=== PATIENT | male | born 1955 | race Caucasian/White ===

== ENCOUNTER 2017-10-10 07:50 | Day surgery (SDC) | payer OTHER ==
[2017-10-07 11:16] VITALS: BMI 25.0
[~2017-10-10 07:50] MED LIST: LACTATED RINGERS 1,000 ML IV SCH
[2017-10-10 08:11] VITALS: TEMP 98.4
[2017-10-10] MEDS ORDERED: LIDOCAINE 1% 20 ML VIAL (10MG/ML) FOR IV START INTRADERMA ONE (08:17)
[2017-10-10] MEDS ORDERED: LIDOCAINE 1% INJ 10MG/ML (20 ML MDV) ONE (08:29)
[2017-10-10] MEDS ORDERED: PROPOFOL 10 MG/ML 20 ML VIAL IV ONE (08:29)
--- NOTE | 2017-10-10 08:30 | P.GSHP ---
History of Present Illness H&P Date: 10/10/17 Chief Complaint: Colon cancer screening Patient here today for colonoscopy. He has not had been previously. No bowel related complaints. No family history of colon cancer. Past Medical History Past Medical History: No Reported History History of Any Multi-Drug Resistant Organisms: None Reported Past Surgical History: No Surgical Hx Reported Past Anesthesia/Blood Transfusion Reactions: No Reported Reaction Additional Past Anesthesia/Blood Transfusion Reaction / Comment(s): no anesthesia hx Smoking Status: Never smoker - Past Family History Mother Family Medical History: No Reported History Medications and Allergies Home Medications Medication Instructions Recorded Confirmed Type No Known Home Medications [No 10/07/17 10/07/17 History Known Home Medications] Allergies Allergy/AdvReac Type Severity Reaction Status Date / Time No Known Allergies Allergy Verified 10/07/17 11:13 Surgical - Exam Vital Signs Temp Pulse Resp BP Pulse Ox 98.4 F 89 16 161/85 98 10/10/17 08:09 10/10/17 08:09 10/10/17 08:09 10/10/17 08:09 10/10/17 08:09 Physical exam: General: Well-developed, well-nourished HEENT: Normocephalic, sclerae nonicteric Abdomen: Nontender, nondistended Extremities: No edema Neuro: Alert and oriented Assessment and Plan (1) Colon cancer screening Narrative/Plan: Will proceed with colonoscopy at this time. Current Visit: Yes Status: Acute Code(s): Z12.11 - ENCOUNTER FOR SCREENING FOR MALIGNANT NEOPLASM OF COLON SNOMED Code(s): 925467294
--- NOTE | 2017-10-10 09:21 | P.PCN ---
Date of Procedure: 10/10/17 Procedure(s) Performed: PREOPERATIVE DIAGNOSIS: Colon cancer screening POSTOPERATIVE DIAGNOSIS: Ascending colon polyp 2, sigmoid colon polyp, diverticulosis PROCEDURE: Colonoscopy with snare polypectomy ANESTHESIA: MAC SURGEON: Saw Mast M.D. SPECIMENS: Polyps ENDOSCOPIC PROCEDURE: The patient was placed on the endoscopy table in the left decubitus position. The Olympus colonoscope was inserted into the anus and passed under direct visualization to the base of the cecum. The appendiceal orifice was visualized. From that point the scope was slowly withdrawn inspecting all surfaces carefully. There were no neoplastic inflammatory or polypoid lesions throughout the cecum. In the ascending colon 2 polyps were seen and removed using the snare with cautery technique. The transverse and descending colon appeared normal. In the sigmoid colon a small polyp was seen and removed using the snare with cautery technique. The remainder of the sigmoid and rectum were normal. He was mild diverticulosis present in the sigmoid colon. Digital rectal examination was normal. The patient was taken to the recovery room in stable condition per anesthesia guidelines. RECOMMENDATIONS: Await biopsy results. Anticipate follow-up colonoscopy 5 years.
[2017-10-10 09:22] VITALS: BP 139/82; PULSE 68; RESP 18
== END 2017-10-10 09:40 | disposition home or self-care (01) ==
LOC: ORWHC2ENDO 07:50
PROVIDERS: ATTEND Surgery
DX: Z12.11 Encounter for screening for malignant neoplasm of colon (principal); D12.2 Benign neoplasm of ascending colon; K57.30 Diverticulosis of large intestine without perforation or abscess without bleeding
CPT/HCPCS: 88305; 45385; J2001; J2704

== ENCOUNTER 2023-03-25 11:13 | Day surgery (SDC) | payer MEDICARE, OTHER ==
[~2023-03-25 11:13] MED LIST changes: +LIDOCAINE 1% (10MG/ML) FOR IV START INTRADERMA PRN
[2023-03-25 12:32] VITALS: RESP 16; TEMP 97.5
[2023-03-25] MEDS ORDERED: IV FLUID CONTINUATION 900 ML IV ONE (13:11)
[2023-03-25] MEDS ORDERED: PROPOFOL 10 MG/ML 20 ML VIAL IV ONE (13:13)
--- NOTE | 2023-03-25 13:18 | P.GSHP ---
History of Present Illness H&P Date: 03/25/23 Chief Complaint: Screening with history of polyps 67-year-old male here for colonoscopy. Last colonoscopy 5 years ago. 3 adenomatous polyps were seen. No bowel complaints. No family history of colon cancer. Past Medical History Past Medical History: No Reported History History of Any Multi-Drug Resistant Organisms: None Reported Past Surgical History: No Surgical Hx Reported Past Anesthesia/Blood Transfusion Reactions: No Reported Reaction Additional Past Anesthesia/Blood Transfusion Reaction / Comment(s): no anesthesia hx Smoking Status: Never smoker - Past Family History Mother Family Medical History: No Reported History Medications and Allergies Home Medications Medication Instructions Recorded Confirmed Type No Known Home Medications 10/07/17 03/18/23 History Allergies Allergy/AdvReac Type Severity Reaction Status Date / Time No Known Allergies Allergy Verified 03/25/23 12:32 Surgical - Exam Vital Signs Temp Pulse Resp BP Pulse Ox 97.5 F L 80 16 162/83 97 03/25/23 12:18 03/25/23 12:18 03/25/23 12:18 03/25/23 12:18 03/25/23 12:18 Physical exam: General: Well-developed, well-nourished HEENT: Normocephalic, sclerae nonicteric Abdomen: Nontender, nondistended Extremities: No edema Neuro: Alert and oriented Assessment and Plan (1) Colon cancer screening Narrative/Plan: Will proceed with colonoscopy Current Visit: No Status: Acute Code(s): Z12.11 - ENCOUNTER FOR SCREENING FOR MALIGNANT NEOPLASM OF COLON SNOMED Code(s): 220836346
--- NOTE | 2023-03-25 13:30 | P.PCN ---
Date of Procedure: 03/25/23 Procedure(s) Performed: PREOPERATIVE DIAGNOSIS: Screening with history of polyps POSTOPERATIVE DIAGNOSIS: Diverticulosis PROCEDURE: Colonoscopy ANESTHESIA: MAC SURGEON: Saw Mast M.D. SPECIMENS: None ENDOSCOPIC PROCEDURE: The patient was placed on the endoscopy table in the left decubitus position. The Olympus colonoscope was inserted into the anus and passed under direct visualization to the base of the cecum. The appendiceal orifice was visualized. From that point the scope was slowly withdrawn inspecting all surfaces carefully. There were no neoplastic inflammatory or polypoid lesions throughout the cecum, ascending, transverse, descending, sigmoid and rectum. There was mild left-sided diverticulosis noted. Digital rectal examination was normal. The patient was taken to the recovery room in stable condition per anesthesia guidelines. RECOMMENDATIONS: Resume diet. Repeat colonoscopy in 5-7 years. Disposition: other
[2023-03-25 13:59] VITALS: BP 125/66; PULSE 60
== END 2023-03-25 14:13 | disposition home or self-care (01) ==
LOC: ORWHC2ENDO 11:13
PROVIDERS: ATTEND Surgery
DX: Z12.11 Encounter for screening for malignant neoplasm of colon (principal); K63.5 Polyp of colon; K57.30 Diverticulosis of large intestine without perforation or abscess without bleeding; Z86.010 Personal history of colon polyps
CPT/HCPCS: G0105; J2704; 45378

== ENCOUNTER → 2023-12-25 | Outpatient (CLI) | payer MEDICARE ==
--- NOTE | 2023-12-25 12:30 | CT ---
EXAMINATION TYPE: CT abdomen pelvis wo con DATE OF EXAM: 12/25/2023 HISTORY: Intra abdominal/pelvic swelling, mass, possible hernia. CT DLP: 918 mGycm. Automated Exposure Control for Dose Reduction was Utilized. TECHNIQUE: CT scan of the abdomen and pelvis is performed without oral or IV contrast. COMPARISON: None FINDINGS: There is an ill-defined 6.5 mm nodule in the left lung base posteriorly. There are questionable nodul es in the lingula as well. CT of the chest is recommended for further evaluation of the lung parenchy ma in its entirety. The gallbladder is normal. No gallstones or distention or biliary ductal dilatation. There is no organomegaly involving the liver, pancreas, spleen and adrenal glands. There is no renal calcification or hydronephrosis. Caliber of the abdominal aorta is normal. There is no retroperitoneal adenopathy. The bowel loops are normal in caliber and no dilatation or obstruction. No inflammatory changes are i dentified in the bowel and mesentery and there is no free intraperitoneal air or fluid. There is a right inguinal hernia containing bowel loops which do not appear dilated or strangulated. There is no pelvic adenopathy or abscess. The osseous structures are intact. IMPRESSION: 1. Left lung nodules as described above. CT chest is recommended to evaluate the lung parenchyma in i ts entirety. 2. Right inguinal hernia containing non strangulated small bowel loops.
== END | disposition home or self-care (01) ==
LOC: RADCTMAIN 10:32
PROVIDERS: ATTEND Family Medicine
DX: K40.90 Unilateral inguinal hernia, without obstruction or gangrene, not specified as recurrent (principal); R19.00 Intra-abdominal and pelvic swelling, mass and lump, unspecified site; R91.8 Other nonspecific abnormal finding of lung field
CPT/HCPCS: 74176

== ENCOUNTER 2024-01-10 07:42 | Observation (INO) | payer MEDICARE ==
--- NOTE | 2024-01-10 08:08 | ED ---
General Adult HPI - General Chief complaint: Abdominal Pain Stated complaint: Hernia, abd pain, nausea Time Seen by Provider: 01/10/24 07:57 Source: patient, family, RN notes reviewed Mode of arrival: ambulatory Limitations: no limitations - History of Present Illness Initial comments: Patient is a 68-year-old male presenting to the emergency department with concerns for hernia. Patient has had hernia discomfort over the past few days however hernia has been longer than that. Patient is having some nausea and some mild loose stools. Symptoms seem worse later in the day. Patient sometimes has some bulging in the scrotum as well. Discomfort is minimal at this time. No fever. No emesis. - Related Data Home Medications Medication Instructions Recorded Confirmed No Known Home Medications 10/07/17 03/18/23 Allergies Allergy/AdvReac Type Severity Reaction Status Date / Time No Known Allergies Allergy Verified 03/25/23 12:32 Review of Systems ROS Statement: Those systems with pertinent positive or pertinent negative responses have been documented in the HPI. ROS Other: All systems not noted in ROS Statement are negative. Constitutional: Denies: fever Eyes: Denies: eye pain ENT: Denies: ear pain Respiratory: Denies: dyspnea Cardiovascular: Denies: chest pain Endocrine: Denies: fatigue Gastrointestinal: Reports: as per HPI, abdominal pain, nausea. Denies: vomiting Genitourinary: Reports: as per HPI Past Medical History Past Medical History: No Reported History Additional Past Medical History / Comment(s): hernia History of Any Multi-Drug Resistant Organisms: None Reported Past Surgical History: No Surgical Hx Reported Past Anesthesia/Blood Transfusion Reactions: No Reported Reaction Additional Past Anesthesia/Blood Transfusion Reaction / Comment(s): no anesthesia hx Past Psychological History: No Psychological Hx Reported Smoking Status: Never smoker - Past Family History Mother Family Medical History: No Reported History General Exam Limitations: no limitations General appearance: alert, in no apparent distress Head exam: Present: normocephalic Eye exam: Present: normal appearance Neck exam: Present: normal inspection Respiratory exam: Present: normal lung sounds bilaterally Cardiovascular Exam: Present: regular rate, normal rhythm GI/Abdominal exam: Present: soft, tenderness (Mild diffuse tenderness), hernia (Right inguinal, easily reducible). Absent: distended exam: Present: normal inspection. Absent: testicular tenderness Extremities exam: Present: normal inspection Neurological exam: Present: alert Psychiatric exam: Present: normal affect, normal mood Skin exam: Present: normal color Course Vital Signs 01/10/24 07:45 Temperature 97.9 F Pulse Rate 100 Respiratory 20 Rate Blood Pressure 148/92 O2 Sat by Pulse 98 Oximetry Medical Decision Making - Medical Decision Making Was pt. sent in by a medical professional or institution ([facility] Galeano, ROLL PLUGGER MACHINE OPERATOR, urgent care, hospital, or correction...) When possible be specific @ -No Did you speak to anyone other than the patient for history (EMS, parent, family, police, friend...)? What history was obtained from this source @ -Family is present helps provide history including the patient does have an appointment to see Dr. Harris Did you review nursing and triage notes (agree or disagree)? Why? @ -I reviewed and agree with nursing and triage notes Were old charts reviewed (outside hosp., previous admission, EMS record, old EKG, old radiological studies, urgent care reports/EKG's, correction records)? Report findings @ -No old charts were reviewed Differential Diagnosis (chest pain, altered mental status, abdominal pain women, abdominal pain men, vaginal bleeding, weakness, fever, dyspnea, syncope, headache, dizziness, GI bleed, back pain, seizure, CVA, palpatations, mental health, musculoskeletal)? @ -Differential Abdominal Pain Men: Appendicitis, cholecystitis, diverticulosis, ischemic bowel, pancreatitis, hepatitis, UTI, gastroenteritis, AAA, incarcerated hernia, bowel obstruction, constipation, inflammatory bowel, hepatitis, peptic ulcer disease, splenic in farction, perforated viscus, testicular torsion, this is not meant to be an all- inclusive list EKG interpreted by me (3pts min.). @ -As above X-rays interpreted by me (1pt min.). @ -None done CT interpreted by me (1pt min.). @ -CT scan does show some hernia in the scrotum with some bowel that is nondilated however approximately there is evidence of small bowel obstruction U/S interpreted by me (1pt. min.). @ -None done What testing was considered but not performed or refused? (CT, X-rays, U/S, labs)? Why? @ -Labs will be added What meds were considered but not given or refused? Why? @ - Did you discuss the management of the patient with other professionals (professionals i.e. Dr., PA, ROLL PLUGGER MACHINE OPERATOR, lab, RT, psych nurse, bilingual social worker, aluminum shingle roofer, teacher, air crew officer, classification case manager)? Give summary @ -Case discussed with Dr. Garcia who will come evaluate Was smoking cessation discussed for >3mins.? @ -No Was critical care preformed (if so, how long)? @ -No Were there social determinants of health that impacted care today? How? (Homelessness, low income, unemployed, alcoholism, drug addiction, transportation, low edu. Level, literacy, decrease access to med. care, care home, rehab)? @ -No Was there de-escalation of care discussed even if they declined (Discuss DNR or withdrawal of care, Hospice)? DNR status @ -No What co-morbidities impacted this encounter? (DM, HTN, Smoking, COPD, CAD, Cancer, CVA, ARF, Chemo, Hep., AIDS, mental health diagnosis, sleep apnea, morbid obesity)? @ -None Was patient admitted / discharged? Hospital course, mention meds given and route, prescriptions, significant lab abnormalities, going to OR and other pertinent info. @ -Patient presents with problems with inguinal hernia with some abdominal symptoms. CT scan concerning for small bowel obstruction. Patient will be admitted to surgery. Admission orders written. Undiagnosed new problem with uncertain prognosis? @ -No Drug Therapy requiring intensive monitoring for toxicity (Heparin, Nitro, Insulin, Cardizem)? @ -No Were any procedures done? @ -No Diagnosis/symptom? @ -Inguinal hernia, small bowel obstruction Acute, or Chronic, or Acute on Chronic? @ -Acute on chronic, acute Uncomplicated (without systemic symptoms) or Complicated (systemic symptoms)? @ -Complicated with small bowel obstruction Side effects of treatment? @ -No Exacerbation, Progression, or Severe Exacerbation? @ -No Poses a threat to life or bodily function? How? (Chest pain, USA, MA, pneumonia, PE, COPD, DKA, ARF, appy, cholecystitis, CVA, Diverticulitis, Homicidal, Suicidal, threat to staff... and all critical care pts) @ -Threat to bowel function Disposition Clinical Impression: Small bowel obstruction, Inguinal hernia Disposition: [facility] Condition: Serious Is patient prescribed a controlled substance at d/c from ED?: No Referrals: Jayant Cooper DO [Primary Care Provider] - 1-2 days Time of Disposition: 08:55
--- NOTE | 2024-01-10 08:43 | CT ---
EXAMINATION TYPE: CT abdomen pelvis wo con DATE OF EXAM: 01/10/2024 HISTORY: inguinal hernia CT DLP: 569.4 mGycm. Automated Exposure Control for Dose Reduction was Utilized. TECHNIQUE: CT scan of the abdomen and pelvis is performed without oral or IV contrast. COMPARISON: 12/25/2023 FINDINGS: The lungs are clear. Gallbladder is normal and there is no gallstone, wall thickening, pericholecystic fluid or distention . There is no biliary ductal dilatation. There is no organomegaly of the liver, pancreas, spleen or adrenal glands. There are no renal calcifications or hydronephrosis. The caliber of the abdominal aorta is normal and there is no retroperitoneal adenopathy or hemorrhage . There is a distal small bowel obstruction and the transition point is within the right inguinal herni a which does contain bowel loop. There is no pelvic mass, free fluid, abscess or adenopathy. The osseous structures and soft tissues are unremarkable. IMPRESSION: Right inguinal hernia containing nondilated bowel loop however proximal to this point, there is a sm all bowel obstruction.
[2024-01-10] MEDS ORDERED: NALOXONE 0.4 MG/ML 1 ML VIAL IV PRN (08:55)
[2024-01-10] MEDS ORDERED: HYDROmorphone 1 MG/ML 1 ML SYRINGE IVP PRN (08:55)
[2024-01-10] MEDS ORDERED: HYDROmorphone 0.5 MG/0.5 ML SYRINGE IVP PRN (08:55)
[2024-01-10] MEDS: SODIUM CHLORIDE 0.9% 1,000 ML IV SCH (09:51)
[2024-01-10] MEDS: LORazepam 2 MG/ML INJ IV STA (09:51)
[2024-01-10] MEDS: PANTOPRAZOLE 40 MG/10 ML VIAL IV SCH (09:51)
[2024-01-10 10:00] LABS: Basophils % (A) 0 %; Eosinophils # (A) 0.1 k/uL (0-0.7); Eosinophils % (A) 1 %; HCT 47.7 % (39.0-53.0); HGB 15.8 gm/dL (13.0-17.5); Lymphocytes # (A) 0.8 k/uL (1.0-4.8); Lymphocytes % (A) 9 %; MCH 31.4 pg (25.0-35.0); MCHC 33.1 g/dL (31.0-37.0); MCV 94.9 fL (80.0-100.0); Monocytes # (A) 0.6 k/uL (0-1.0); Monocytes % (A) 7 %; Neutrophils # (A) 7.4 k/uL (1.3-7.7); Neutrophils % (A) 83 %; Platelet Count 205 k/uL (150-450); RBC 5.02 m/uL (4.30-5.90); RDW 12.3 % (11.5-15.5)
[2024-01-10 10:09] LABS: INR 1.1 (<1.2); Prothrombin Time 11.5 sec (10.0-12.5)
[2024-01-10] MEDS: DEXAMETHASONE SOD PHOSPHATE 4 MG/ML 1 ML VIAL IVP STA (10:10)
[2024-01-10 10:42] LABS: ALT 18 U/L (4-49); AST 27 U/L (17-59); African American GFR (CKD) >90 (>60 ml/min/1.73 sqM); Albumin 4.6 g/dL (3.5-5.0); Alkaline Phosphatase 78 U/L (38-126); Anion Gap 8 mmol/L; Blood Urea Nitrogen 27 mg/dL (9-20); Calcium 9.5 mg/dL (8.4-10.2); Carbon Dioxide 25 mmol/L (22-30); Chloride 104 mmol/L (98-107); Glucose 119 mg/dL (74-99); Non-African American GFR(CKD) 88 (>60 ml/min/1.73 sqM); Potassium 4.2 mmol/L (3.5-5.1); Sodium 137 mmol/L (137-145); Total Bilirubin 3.3 mg/dL (0.2-1.3); Total Protein 7.3 g/dL (6.3-8.2)
--- NOTE | 2024-01-10 10:43 | XR ---
Abdomen, 2 view. HISTORY: NG tube placement. COMPARISON: None TECHNIQUE: 2 upright views the abdomen were obtained. FINDINGS: There is an NG tube within the stomach. The lung bases are clear. There is no free intraperitoneal air. There are multiple differential air and fluid-filled loops of small bowel consistent with distal smal l bowel obstruction. No suspicious abdominal or pelvic calcifications are seen. The osseous structures are grossly intact. IMPRESSION: 1. NG tube within stomach. 2. Findings consistent with distal small bowel obstruction.
[2024-01-10] MEDS: ONDANSETRON 4 MG/2 ML VIAL IVP PRN (10:49)
[2024-01-10] MEDS: SODIUM CHLORIDE 0.9% 1,000 ML IV ONE (10:54)
[2024-01-10] MEDS: SODIUM CHLORIDE 0.9% 100 ML with ceFAZolin 2,000 MG IV ONE (10:54)
[2024-01-10] MEDS ORDERED: MIDAZOLAM 2 MG/2 ML VIAL ONE (10:55)
[2024-01-10] MEDS ORDERED: fentaNYL (PF) 50 MCG/ML 2 ML AMP ONE (10:55)
[2024-01-10] MEDS ORDERED: KETAMINE HCL IN 0.9 % NACL 50 MG/5 ML SYRINGE ONE (10:55)
[2024-01-10] MEDS ORDERED: PROPOFOL 10 MG/ML 20 ML VIAL IV ONE (10:55)
[2024-01-10] MEDS ORDERED: SUGAMMADEX SODIUM 200 MG/2 ML SDV IV ONE (10:55)
[2024-01-10] MEDS ORDERED: SUCCINYLCHOLINE CHLORIDE 200 MG/10 ML VIAL IV ONE (10:55)
[2024-01-10] MEDS ORDERED: ROCURONIUM 10 MG/ML (5 ML VIAL) IV ONE (10:55)
[2024-01-10] MEDS: LACTATED RINGERS 1,000 ML IV ONE (11:28)
[2024-01-10] MEDS: LIDOCAINE 2%-EPI 1:100,000 20 ML VIAL SQ ONE ×2 (11:29→13:02)
[2024-01-10] MEDS: IV FLUID CONTINUATION 1,000 ML IV ONE (13:49)
--- NOTE | 2024-01-11 02:11 | P.GSHP ---
History of Present Illness H&P Date: 01/10/24 Patient is a 68 yo male presenting with increasing abdominal pain over the last several days. Patient has history of right inguinal hernia that is usually easily reducible. However, patient states over the last several hours he's had increasing abdominal pain associated w/ groin pain. ADmits to nausea, fevers, and chills. CTAP demonstrates incarcerated inguinal hernia w/ associated small bowel obstruction. - Review of Systems All systems: negative Past Medical History Past Medical History: No Reported History Additional Past Medical History / Comment(s): hernia History of Any Multi-Drug Resistant Organisms: None Reported Past Surgical History: No Surgical Hx Reported, Hernia Repair Additional Past Surgical History / Comment(s): robotic assist lap hernia repair 12/2023 Past Anesthesia/Blood Transfusion Reactions: No Reported Reaction Additional Past Anesthesia/Blood Transfusion Reaction / Comment(s): no anesthesia hx Past Psychological History: No Psychological Hx Reported Smoking Status: Never smoker Past Alcohol Use History: Occasional Past Drug Use History: None Reported - Past Family History Mother Family Medical History: No Reported History Medications and Allergies Home Medications Medication Instructions Recorded Confirmed Type No Known Home Medications 10/07/17 01/10/24 History Allergies Allergy/AdvReac Type Severity Reaction Status Date / Time No Known Allergies Allergy Verified 01/10/24 09:38 Surgical - Exam Osteopathic Statement: *. No significant issues noted on an osteopathic structural exam other than those noted in the History and Physical/Consult. Vital Signs Temp Pulse Resp BP Pulse Ox 97.9 F 100 20 148/92 98 01/10/24 07:45 01/10/24 07:45 01/10/24 07:45 01/10/24 07:45 01/10/24 07:45 gen: nad heent: atraumatic,normocephalic, eyes perrla cv: rrr pul: non labored breathing abd: soft, tender to palpation, distended, no surgical scars b/l lower extremities palpable dp/pt pulses b/l Results - Labs 01/10/24 08:55 01/10/24 08:55 Abnormal Lab Results - Last 24 Hours (Table) 01/10/24 01/10/24 Range/Units 08:55 08:55 Lymphocytes # 0.8 L (1.0-4.8) k/uL BUN 27 H (9-20) mg/dL Glucose 119 H (74-99) mg/dL Total Bilirubin 3.3 H (0.2-1.3) mg/dL Diabetes panel 01/10/24 Range/Units 08:55 Sodium 137 (137-145) mmol/L Potassium 4.2 (3.5-5.1) mmol/L Chloride 104 (98-107) mmol/L Carbon Dioxide 25 (22-30) mmol/L BUN 27 H (9-20) mg/dL Creatinine 0.88 (0.66-1.25) mg/dL Glucose 119 H (74-99) mg/dL Calcium 9.5 (8.4-10.2) mg/dL AST 27 (17-59) U/L ALT 18 (4-49) U/L Alkaline Phosphatase 78 (38-126) U/L Total Protein 7.3 (6.3-8.2) g/dL Albumin 4.6 (3.5-5.0) g/dL Calcium panel 01/10/24 Range/Units 08:55 Calcium 9.5 (8.4-10.2) mg/dL Albumin 4.6 (3.5-5.0) g/dL Pituitary panel 01/10/24 Range/Units 08:55 Sodium 137 (137-145) mmol/L Potassium 4.2 (3.5-5.1) mmol/L Chloride 104 (98-107) mmol/L Carbon Dioxide 25 (22-30) mmol/L BUN 27 H (9-20) mg/dL Creatinine 0.88 (0.66-1.25) mg/dL Glucose 119 H (74-99) mg/dL Calcium 9.5 (8.4-10.2) mg/dL Adrenal panel 01/10/24 Range/Units 08:55 Sodium 137 (137-145) mmol/L Potassium 4.2 (3.5-5.1) mmol/L Chloride 104 (98-107) mmol/L Carbon Dioxide 25 (22-30) mmol/L BUN 27 H (9-20) mg/dL Creatinine 0.88 (0.66-1.25) mg/dL Glucose 119 H (74-99) mg/dL Calcium 9.5 (8.4-10.2) mg/dL Total Bilirubin 3.3 H (0.2-1.3) mg/dL AST 27 (17-59) U/L ALT 18 (4-49) U/L Alkaline Phosphatase 78 (38-126) U/L Total Protein 7.3 (6.3-8.2) g/dL Albumin 4.6 (3.5-5.0) g/dL Assessment and Plan Assessment: 68 yo male w/ abdominal pain 2/2 sbo incarcerated inguinal hernia, right -ngt -ivf -npo -non reducible, will take to OR Time with Patient: Greater than 30
[2024-01-11 07:51] VITALS: RESP 16
[2024-01-11 19:54] VITALS: BP 146/80; PULSE 91; TEMP 99.4
--- NOTE | 2024-01-12 22:38 | P.OP ---
Date of Procedure: 01/10/24 Preoperative Diagnosis: small bowel obstruction Postoperative Diagnosis: small bowel obstruction Procedure(s) Performed: right robotic inguinal herniorrhaphy with mesh Implants: right sided mesh Anesthesia: LISBETHA Surgeon: Luis Angel Carmen Estimated Blood Loss (ml): 25 Pathology: none sent Disposition: floor Indications for Procedure: Patient is a 68 yo male presenting with abdominal pain. CTAP demonstrates small bowel obstruction after reduction. All risks and benefits was explained to the patient and the patient requested we proceed to surgery. Operative Findings: dilated loops of bowel and a sliding hernia Description of Procedure: Patient was brought to the opeative suite where he was cleaned and draped in sterile fashion. A timeout was performed and everyone agreed with he information provided.A left upper quadrant incision was made and a 5mm port was used to gain access in the abdomen. 2 more working 8mm ports were placed and the original 5mm port was exchanged for an 8mm port. Once in the abdomen the robot was docked and the cecum/appendix and terminal ileum was found to be incarcerated. Robotic scissors was then used to make an incision just medial to asis toward umbilical ligament. Was a flap was created, the cecum, TI, and appendix was slowly reduced reducing the sac and clearing off the cord structures. The vas was identified medially and testicular vessels were identified laterally. Once the sac was completely reduced, a mesh was placed and the flap was closed over the mesh using 2-0 barbed suture. The small bowel was observed in a distal to proximal fashion, the initial dilated loop of small bowel had decreased in size. All instruments were removed under direct visualization and the ports were closed using 4-0 vicryl suture in an interrupted fashion. the patient was then transferred to the floor in stable condition.
--- NOTE | 2024-01-14 12:29 | P.DS ---
Providers Date of admission: 01/10/24 08:55 Expected date of discharge: 01/11/24 Attending physician: Luis Angel Carmen DO Primary care physician: Jayant Cooper [facility] Course: CHIEF COMPLAINT: Incarcerated right inguinal hernia with bowel obstruction HISTORY OF PRESENT ILLNESS: The patient is a 68-year-old male status post robotic right inguinal hernia repair for incarcerated bowel obstruction. He is passing flatus had bowel movements. He is ambulating. Patient is eager to go home. ROS: No reports of nausea and vomiting. Having bowel movements. No fevers or chills. No new chest pain. No productive sputum PHYSICAL EXAM: VITAL SIGNS: Reviewed CONSTITUTIONAL: Well developed and in no acute distress. EYES: Conjuctivae without sclera icterus. Extraocular movements grossly intact. HEAD, EARS, NOSE, THROAT: Moist buccal mucosa. Head is atraumatic, normocephalic. Hears conversational speech. No nasal drainage. RESPIRATORY: Non-labored respirations and equal bilateral excursions. CARDIOVASCULAR: Palpable 2+ radial pulses. ABDOMEN: Incisions clean dry intact. MUSCULOSKELETAL: No gross deformity of the lower extremities noted. No clubbing. No cyanosis. SKIN: Good skin turgor. Well perfused. NEUROLOGIC: Cranial nerves II through XII grossly intact. No focal or lateralizing signs. PSYCH: Appropriate affect. Alert and oriented to person, place and time. CLINICAL LABS: Reviewed. WBC normal. Total bilirubin elevated 3.3, hyperbilirubinemia. ASSESSMENT: 1. Incarcerated right inguinal hernia with bowel obstruction status post repair 2. Hyperbilirubinemia PLAN: 1. I personally discontinued his nasogastric tube. May start broth with crackers. 2. May discharge home with follow-up with index surgeon. 3. Lifting restrictions including swim restrictions for 2 weeks reviewed. Patient Condition at Discharge: Serious Plan - Discharge Summary Discharge Rx Participant: No New Discharge Prescriptions: No Action No Known Home Medications Discharge Medication List No Known Home Medications 10/07/17 [History] Follow up Appointment(s)/Referral(s): Jayant Cooper DO [Primary Care Provider] - 1-2 days
== END 2024-01-11 19:56 | disposition home or self-care (01) ==
LOC: EC 07:42 → 6NMEDSUR 08:55
PROVIDERS: ADMIT Surgery; ATTEND Surgery
DX: K40.30 Unilateral inguinal hernia, with obstruction, without gangrene, not specified as recurrent (principal); K56.609 Unspecified intestinal obstruction, unspecified as to partial versus complete obstruction
CPT/HCPCS: 49650; 99285; 93005; 80053; 85025; 85610; 74018; 74176; G0378 ×2; C1781; J2250; J0330; J2060; J1100; J2405; J0690; J3010; J2704; J2470 ×2

== ENCOUNTER → 2024-01-26 | Outpatient (CLI) | payer MEDICARE ==
--- NOTE | 2024-03-17 09:49 | CT ---
EXAMINATION TYPE: CT chest wo/w con CT DLP: 1020 mGycm, Automated exposure control for dose reduction was used. DATE OF EXAM: 02/03/2024 6:37 PM COMPARISON: CT abdomen and pelvis 12/25/2023 CLINICAL INDICATION: Male, 68 year old with history of left lung nodules. TECHNIQUE: Multiple axial images were obtained through the chest before and after the uneventful admi nistration of 100 mL of Isovue-370 intravenously . Coronal and sagittal reformats reviewed. FINDINGS: LUNGS/ PLEURA: No pleural effusion, pneumothorax, or focal consolidation. No suspicious pulmonary nod ule mass. Resolution of previously demonstrated left lower lobe nodular opacity. AIRWAY: Patent and unremarkable.. HEART: Size within normal limits. No pericardial effusion. All coronary arterial calcifications. MEDIASTINUM: No evidence of adenopathy. VASCULATURE: No aortic aneurysm. Minimal atherosclerotic calcification of the aorta and its branches . MUSCULOSKELETAL: No acute osseous abnormalities SOFT TISSUES/LYMPH NODES: Left gynecomastia. LOWER NECK: No significant findings. UPPER ABDOMEN: No significant findings. IMPRESSION: Resolution of left lower lobe nodular opacity from prior CT. Probable resolving atelectasis and/or in fectious/inflammation. No suspicious pulmonary nodules or masses.
== END | disposition home or self-care (01) ==
LOC: RADCTMAIN 10:35
PROVIDERS: ATTEND Family Medicine
DX: D49.1 Neoplasm of unspecified behavior of respiratory system (principal); R91.1 Solitary pulmonary nodule
CPT/HCPCS: 71260; 36415; Q9967

== ENCOUNTER → 2024-11-29 | Outpatient (CLI) | payer MEDICARE ==
--- NOTE | 2024-11-29 09:51 | XR ---
EXAMINATION TYPE: XR chest 2V DATE OF EXAM: 11/29/2024 9:44 AM COMPARISON: None. CLINICAL INDICATION: Male, 69 years old with history of Z00.00 [facility]AM W/O A, TECHNIQUE: XR chest 2V view(s) obtained. FINDINGS: The heart size is normal. The pulmonary vasculature is normal. The lungs are clear. IMPRESSION: 1. No acute pulmonary process. [facility], , 11/29/2024 9:49 AM
== END | disposition home or self-care (01) ==
LOC: LABWHC1 09:30
PROVIDERS: ATTEND Family Medicine
DX: Z00.00 Encounter for general adult medical examination without abnormal findings (principal)
CPT/HCPCS: 71046